=== PATIENT | male | born 1940 | race Hispanic/Latino ===

== ENCOUNTER 2021-04-08 15:32 | Emergency (ER) | payer MEDICARE ==
[2021-04-08 16:41] LABS: Mean Corpuscular Hemoglobin 31.8 pg (27.0-31.0); Mean Corpuscular Volume 96.2 fL (78.0-98.0); Mean Platelet Volume 6.5 fL (7.4-10.4); Platelet Count 215 thou/uL (130-400); RBC Distribution Width 13.3 % (11.5-14.5)
[2021-04-08 17:02] LABS: Band 1 % (5-11); Eosinophils 3 % (0-10); Lymphocytes 20 % (21-51); MDiff Complete? YES; Monocytes 17 % (0-10); Neutrophil 58 % (42-75); Platelet Morphology Comment Appears Adequate; Polychromasia SLIGHT = 2-3 cells (100X) (0-2/hpf)
[2021-04-08 17:04] LABS: ALT (SGPT) 27 U/L (8-55); AST (SGOT) 33 U/L (5-34); Alkaline Phosphatase 59 U/L (40-110); Anion Gap 12 mmol/L (10-20); BUN (Urea Nitrogen) 25 mg/dL (8.4-25.7); Bilirubin, Total 0.3 mg/dL (0.2-1.2); Calc. Creatinine Clearance 0 mL/min (70-130); Calcium 9.2 mg/dL (7.8-10.44); Carbon Dioxide 27 mmol/L (23-31); Chloride 105 mmol/L (98-107); Glucose 110 mg/dL (83-110); Lipase 85 U/L (8-78); Potassium 4.8 mmol/L (3.5-5.1); Sodium 139 mmol/L (136-145)
== END 2021-04-08 17:50 | disposition left against medical advice (07) ==
LOC: ERS 15:32
DX: Z53.21 Procedure and treatment not carried out due to patient leaving prior to being seen by health care provider (principal)
CPT/HCPCS: 36415; 80053; 83690; 85025

== ENCOUNTER 2021-12-31 17:45 | Inpatient (IN) | payer MEDICARE, OTHER ==
[~2021-12-31 17:45] MED LIST: Iopamidol-370 76% 500 ML 1 ML ONE
[2021-12-31 19:34] LABS: Hemoglobin 13.1 g/dL (14.0-18.0); Mean Corpuscular HGB CONC 34.9 g/dL (32.0-36.0); Mean Corpuscular Hemoglobin 34.3 pg (27.0-31.0); Mean Corpuscular Volume 98.5 fL (78.0-98.0); Mean Platelet Volume 6.4 fL (7.4-10.4); Platelet Count 233 thou/uL (130-400); RBC Distribution Width 11.8 % (11.5-14.5); Red Blood Cell (RBC) Count 3.83 mill/uL (4.70-6.10); White Blood Cell (WBC) Count 6.2 thou/uL (4.8-10.8)
[2021-12-31 19:51] LABS: Eosinophils 3 % (0-10); Lymphocytes 26 % (21-51); MDiff Complete? YES; Monocytes 10 % (0-10); Neutrophil 55 % (42-75); Platelet Morphology Comment Appears Adequate; Polychromasia SLIGHT = 2-3 cells (100X) (0-2/hpf); Reactive Lymphocytes 6 % (0-10)
[2021-12-31 19:56] LABS: ALT (SGPT) 34 U/L (8-55); AST (SGOT) 30 U/L (5-34); Albumin 4.4 g/dL (3.4-4.8); Alkaline Phosphatase 66 U/L (40-110); Anion Gap 16 mmol/L (10-20); BUN (Urea Nitrogen) 26 mg/dL (8.4-25.7); Bilirubin, Total 0.4 mg/dL (0.2-1.2); Calc. Creatinine Clearance 0 mL/min (70-130); Calcium 9.1 mg/dL (7.8-10.44); Carbon Dioxide 25 mmol/L (23-31); Chloride 102 mmol/L (98-107); Estimated GFR 50; Globulin 2.5 g/dL (2.4-3.5); Glucose 104 mg/dL (83-110); Lipase 87 U/L (8-78); Potassium 4.9 mmol/L (3.5-5.1); Protein, Total 6.9 g/dL (5.8-8.1); Sodium 138 mmol/L (136-145)
[2021-12-31 20:14] LABS: CKMB 4.9 ng/mL (0-6.6)
[2021-12-31 21:41] LABS: Bilirubin Negative (Negative); Blood, Urine Negative (Negative); Clarity Turbid (Clear); Glucose, Urine (Dipstick) Normal (Negative); Ketone, Urine Negative (Negative); Leukocyte 500 Leu/uL (Negative); Nitrite Negative (Negative); Protein, Urine (Dipstick) 10 mg/dL (Neg-Trace); Specific Gravity, Urine 1.026 (1.002-1.036); Urobilinogen Normal mg/dL (Less than 2)
[2021-12-31 21:49] LABS: Bacteria/HPF 2+ HPF (None Seen); RBC/HPF 0-3 HPF (0-3); Squamous Epithelial 0-3 HPF (0-3)
[2021-12-31] MEDS ORDERED: cefTRIAXone\\ROCEPHIN 1 GM VIAL ONE (22:30)
[2021-12-31] MEDS ORDERED: Aspirin 325 MG TAB ONE (22:30)
[2021-12-31 23:15] LABS: Troponin I 0.109 ng/mL (< 0.028)
[2022-01-01 00:17] VITALS: BMI 28.5
[2022-01-01] MEDS ORDERED: Acetaminophen 325 MG TAB PO PRN (02:50)
[2022-01-01] MEDS ORDERED: Senokot S 8.6-50 MG TAB PO PRN (02:50)
[2022-01-01] MEDS ORDERED: Ondansetron ODT 4 MG TAB PO PRN (02:50)
[2022-01-01] MEDS ORDERED: Bisacodyl 5 MG TAB PO PRN (02:50)
[2022-01-01] MEDS ORDERED: HYDROcodone/Acetaminophen 5/325 mg Tablet PO PRN (02:50)
[2022-01-01] MEDS ORDERED: Ondansetron PF 4 MG/2 ML Vial IVP PRN (02:50)
[2022-01-01] MEDS: Sodium Chloride 0.9% 1,000 ML IV SCH ×2 (03:51→14:05)
[2022-01-01 05:02] LABS: Cardiac Risk 3.2 (Less than 4.5)
[2022-01-01 05:08] LABS: Iron 87 ug/dL (65-175); Iron Binding Capacity, Total 258 mcg/dL (261-462)
[2022-01-01 05:10] LABS: Hemoglobin A1c 5.8 % (4.0-6.0); Troponin I 0.093 ng/mL (< 0.028)
[2022-01-01 05:22] LABS: Ferritin 47.5 ng/mL (22-322); Thyroid Stimulating Hormone 1.112 uIU/mL (0.35-4.94)
[2022-01-01] MEDS: Enoxaparin Sodium 40 MG/0.4 ML SYRINGE SC SCH (08:41)
[2022-01-01] MEDS ORDERED: Aspirin 81 mg Enteric Coated Tablet PO SCH (09:00)
[2022-01-01] MEDS ORDERED: Aspirin Chewable 81 MG TAB PO SCH (09:00)
[2022-01-01] MEDS ORDERED: Hydrochlorothiazide 25 MG TAB PO SCH (09:45)
[2022-01-01] MEDS ORDERED: Ramipril 5 MG CAP PO SCH (09:45)
[2022-01-01] MEDS ORDERED: Carvedilol 25 MG TAB PO SCH (09:45)
[2022-01-01] MEDS ORDERED: Spironolactone 25 MG TAB PO SCH (09:45)
[2022-01-01] MEDS: Carvedilol 25 MG TAB PO SCH ×2 (20:51→20:52)
[2022-01-01] MEDS: Ramipril 5 MG CAP PO SCH (20:53)
[2022-01-01] MEDS: levETIRAcetam 500 MG TAB PO SCH (20:53)
[2022-01-01] MEDS: Icosapent Ethyl 1 GM CAPSULE PO SCH (20:53)
[2022-01-01] MEDS ORDERED: cefTRIAXone\\ROCEPHIN 1 GM in Sodium Chloride 0.9% 100 ML IVPB SCH (21:00)
[2022-01-01] MEDS ORDERED: Gabapentin 300 MG CAP PO SCH (21:00)
[2022-01-01] MEDS ORDERED: VASCEPA 1 GM PO SCH (21:00)
[2022-01-01] MEDS ORDERED: Atorvastatin Calcium 40 MG TAB PO SCH ×2 (21:00)
[2022-01-02] MEDS: Sodium Chloride 0.9% 1,000 ML IV SCH ×2 (01:30→08:50)
[2022-01-02 05:25] LABS: ALT (SGPT) 20 U/L (8-55); AST (SGOT) 19 U/L (5-34); Albumin 3.4 g/dL (3.4-4.8); Alkaline Phosphatase 52 U/L (40-110); Anion Gap 12 mmol/L (10-20); BUN (Urea Nitrogen) 20 mg/dL (8.4-25.7); Bilirubin, Total 0.3 mg/dL (0.2-1.2); Calc. Creatinine Clearance 45 mL/min (70-130); Calcium 8.7 mg/dL (7.8-10.44); Carbon Dioxide 25 mmol/L (23-31); Chloride 106 mmol/L (98-107); Estimated GFR 59; Globulin 2.1 g/dL (2.4-3.5); Glucose 112 mg/dL (83-110); Potassium 3.6 mmol/L (3.5-5.1); Protein, Total 5.5 g/dL (5.8-8.1); Sodium 139 mmol/L (136-145)
[2022-01-02 05:42] LABS: Eosinophils 3 % (0-10); Hemoglobin 11.1 g/dL (14.0-18.0); Lymphocytes 27 % (21-51); MDiff Complete? YES; Mean Corpuscular HGB CONC 34.6 g/dL (32.0-36.0); Mean Corpuscular Hemoglobin 33.8 pg (27.0-31.0); Mean Corpuscular Volume 97.7 fL (78.0-98.0); Mean Platelet Volume 6.4 fL (7.4-10.4); Monocytes 16 % (0-10); Neutrophil 52 % (42-75); Platelet Count 209 thou/uL (130-400); Platelet Morphology Comment Appears Adequate; RBC Distribution Width 11.6 % (11.5-14.5); RBC Morphology Normal; Red Blood Cell (RBC) Count 3.28 mill/uL (4.70-6.10)
[2022-01-02] MEDS ORDERED: Spironolactone 25 MG TAB PO SCH (08:00)
[2022-01-02] MEDS: Icosapent Ethyl 1 GM CAPSULE PO SCH (08:42)
[2022-01-02] MEDS: levETIRAcetam 500 MG TAB PO SCH (08:42)
[2022-01-02] MEDS: Carvedilol 25 MG TAB PO SCH ×2 (08:42→08:44)
[2022-01-02] MEDS: Ramipril 5 MG CAP PO SCH (08:42)
[2022-01-02] MEDS: Enoxaparin Sodium 40 MG/0.4 ML SYRINGE SC SCH (08:43)
[2022-01-02] MEDS ORDERED: Hydrochlorothiazide 25 MG TAB PO SCH (09:00)
[2022-01-02] MEDS ORDERED: Gabapentin 300 MG CAP PO SCH (09:00)
[2022-01-02] MEDS ORDERED: Aspirin 81 mg Enteric Coated Tablet PO SCH ×3 (09:00)
[2022-01-02] MEDS ORDERED: carBAMazepine 200 MG TAB PO SCH (09:00)
[2022-01-02] MEDS ORDERED: FLUoxetine HCl 20 MG CAP PO SCH ×2 (09:00)
[2022-01-02] MEDS ORDERED: Lubiprostone 8 MCG CAP PO SCH (09:00)
[2022-01-02 12:04] VITALS: BP 119/56; TEMP 99.1
== END 2022-01-02 15:56 | disposition home or self-care (01) | DRG 690 ==
LOC: ERS 17:45 → 2NO 22:24
PROVIDERS: ADMIT Family Medicine; ATTEND Family Medicine
DX: N39.0 Urinary tract infection, site not specified (principal); N17.9 Acute kidney failure, unspecified; Z20.822 Contact with and (suspected) exposure to COVID-19; D64.9 Anemia, unspecified; I50.9 Heart failure, unspecified; R77.8 Other specified abnormalities of plasma proteins; E78.00 Pure hypercholesterolemia, unspecified; Z95.0 Presence of cardiac pacemaker; Z79.82 Long term (current) use of aspirin; Z79.899 Other long term (current) drug therapy
CPT/HCPCS: 36415; 74177; 80053; 80061; 81003; 81015; 82553; 82607; 82728; 83036; 83540; 83550; 83690; 84443; 84484; 85025; 87086; 93005; 96365; J0696; J1650; J3490; J7050; Q9967; U0003; U0005

== ENCOUNTER 2022-06-09 17:16 | Emergency (ER) | payer OTHER ==
[2022-06-09 18:14] LABS: #Eosinphils 0.1 thou/uL (0.0-0.7); #Lymphocytes 0.9 thou/uL (1.20-3.40); #Monocytes 0.6 thou/uL (0.11-0.59); %Basophils 0.5 % (0.0-1.0); %Eosinophils 2.4 % (0.0-10.0); %Lymphocytes 19.2 % (21.0-51.0); %Monocytes 12.4 % (0.0-10.0); %Neutrophils 65.5 % (42.0-75.0); Hemoglobin 12.7 g/dL (14.0-18.0); Mean Corpuscular HGB CONC 33.7 g/dL (32.0-36.0); Mean Corpuscular Hemoglobin 33.9 pg (27.0-31.0); Mean Platelet Volume 6.3 fL (7.4-10.4); Platelet Count 225 10x3/uL (130-400); RBC Distribution Width 11.9 % (11.5-14.5); Red Blood Cell (RBC) Count 3.73 mill/uL (4.70-6.10); White Blood Cell (WBC) Count 4.5 10x3/uL (4.8-10.8)
[2022-06-09 18:37] LABS: ALT (SGPT) 38 U/L (8-55); AST (SGOT) 26 U/L (5-34); Albumin 4.1 g/dL (3.4-4.8); Alkaline Phosphatase 54 U/L (40-110); Anion Gap 12 mmol/L (10-20); BUN (Urea Nitrogen) 34 mg/dL (8.4-25.7); Bilirubin, Total 0.3 mg/dL (0.2-1.2); Calc. Creatinine Clearance 0 mL/min (70-130); Carbon Dioxide 26 mmol/L (23-31); Chloride 105 mmol/L (98-107); Estimated GFR 35; Globulin 2.7 g/dL (2.4-3.5); Glucose 119 mg/dL (83-110); Lipase 93 U/L (8-78); Potassium 5.2 mmol/L (3.5-5.1); Protein, Total 6.8 g/dL (5.8-8.1); Sodium 138 mmol/L (136-145)
[2022-06-09] MEDS ORDERED: Dicyclomine 20 MG TAB ONE (20:39)
== END 2022-06-09 20:48 | disposition home or self-care (01) ==
LOC: ERS 17:16
DX: K59.00 Constipation, unspecified (principal); D72.819 Decreased white blood cell count, unspecified; E78.00 Pure hypercholesterolemia, unspecified; I10 Essential (primary) hypertension
CPT/HCPCS: 36415; 74177; 80053; 83690; 85025; 96360; Q9967

== ENCOUNTER 2023-09-09 17:20 | Emergency (ER) | payer MEDICARE ==
[2023-09-09 18:01] LABS: Bilirubin Negative (Negative); Blood, Urine Negative (Negative); Glucose, Urine (Dipstick) Negative (Negative); Ketone, Urine Negative (Negative); Leukocyte Trace (Negative); Nitrite Negative (Negative); Protein, Urine (Dipstick) Negative (Neg-Trace); Specific Gravity, Urine 1.015 (1.005-1.030); Urobilinogen 0.2 mg/dL (Less than 2); pH, Urine 7.5 (5.0-9.0)
[2023-09-09 18:02] LABS: Clarity Hazy (Clear)
[2023-09-09 18:05] LABS: #Basophils Less than 0.03 10x3/uL (0.0-0.2); %Basophils 0.4 % (0.0-1.0); %Eosinophils 4.2 % (0.0-10.0); %Lymphocytes 28.7 % (21.0-51.0); %Monocytes 19.9 % (0.0-10.0); %Neutrophils 46.6 % (42.0-75.0); Hematocrit 38.8 % (42.0-52.0); Mean Corpuscular HGB CONC 33.5 g/dL (32.0-36.0); Mean Corpuscular Hemoglobin 32.7 pg (27.0-31.0); Mean Corpuscular Volume 97.5 fL (78.0-98.0); Mean Platelet Volume 8.5 fL (7.4-10.4); Platelet Count 190 10x3/uL (130-400); RBC Distribution Width 12.9 % (11.5-14.5); Red Blood Cell (RBC) Count 3.98 mill/uL (4.70-6.10)
[2023-09-09 18:18] LABS: Bacteria/HPF Rare-Few HPF (None Seen); CAUTI Indications for Culture Acute Hematuria; RBC/HPF None Seen HPF (0-3); Squamous Epithelial None Seen HPF (0-3)
[2023-09-09 18:19] LABS: Urine Culture Reflex No No
[2023-09-09 18:28] LABS: ALT (SGPT) 41 U/L (8-55); AST (SGOT) 33 U/L (5-34); Albumin 4.2 g/dL (3.4-4.8); Alkaline Phosphatase 72 U/L (40-110); Anion Gap 17 mmol/L (10-20); BUN (Urea Nitrogen) 25 mg/dL (8.4-25.7); Bilirubin, Total 0.3 mg/dL (0.2-1.2); Calc. Creatinine Clearance 0 mL/min (70-130); Calcium 9.3 mg/dL (7.8-10.44); Carbon Dioxide 26 mmol/L (23-31); Chloride 106 mmol/L (98-107); Estimated GFR 50; Globulin 3.1 g/dL (2.4-3.5); Glucose 100 mg/dL (83-110); Potassium 4.6 mmol/L (3.5-5.1); Protein, Total 7.3 g/dL (5.8-8.1); Sodium 144 mmol/L (136-145)
[2023-09-09] MEDS ORDERED: Fleet Saline Enema 133 ML BOT ONE (20:32)
== END 2023-09-09 21:33 | disposition home or self-care (01) ==
LOC: ERS 17:20
DX: K59.00 Constipation, unspecified (principal); I10 Essential (primary) hypertension
CPT/HCPCS: 74177; 80053; 81001; 85025